=== PATIENT | male | born 1990 | race Caucasian/White ===

== ENCOUNTER 2018-04-19 17:05 | Emergency (ER) | payer OTHER ==
[~2018-04-19] VITALS: Ht 180.3 cm; Wt 85.8 kg
[2018-04-19] MEDS ORDERED: HYDROcodone/APAP 5/325 TABLET ONE (17:51)
[2018-04-19] MEDS ORDERED: HYDROcodone/APAP 5/325 TABLET PO ONE (18:00)
[2018-04-19] MEDS ORDERED: PLEASE ENTER ALLERGIES MC SCH (18:00)
[2018-04-19 19:45] VITALS: BP 126/74
== END 2018-04-19 19:47 | disposition home or self-care (01) ==
LOC: ED 17:44
DX: S02.2XXA Fracture of nasal bones, initial encounter for closed fracture (principal); F17.210 Nicotine dependence, cigarettes, uncomplicated; X58.XXXA Exposure to other specified factors, initial encounter; Y93.89 Activity, other specified; Y92.89 Other specified places as the place of occurrence of the external cause; Y99.8 Other external cause status
CPT/HCPCS: 70450; 70486; 99284